=== PATIENT | male | born 2000 | race African-American/Black ===

== ENCOUNTER 2021-10-23 14:45 | Emergency (ER) | payer OTHER ==
[~2021-10-23] VITALS: Ht 182.9 cm; Wt 84.1 kg
[2021-10-23 18:11] LABS: RSV AMPLIFICATION NEGATIVE (NEGATIVE)
[2021-10-23 18:21] VITALS: BP 134/73
== END 2021-10-23 18:24 | disposition home or self-care (01) ==
LOC: M ED 14:45
DX: R05.9 Cough, unspecified (principal); R07.89 Other chest pain

== ENCOUNTER 2022-10-20 15:46 | Emergency (ER) | payer OTHER ==
[~2022-10-20] VITALS: Ht 182.9 cm; Wt 101.2 kg
[2022-10-20] MEDS ORDERED: TETRACAINE 0.5% OPHTH SOLN 4ML OS ONE (19:10)
[2022-10-20] MEDS ORDERED: FLUORESCEIN OPHTH 1MG STRIP OS ONE (19:10)
[2022-10-20] MEDS ORDERED: ACETAMINOPHEN 500 MG TAB PO ONE (19:10)
[2022-10-20] MEDS ORDERED: IBUP-1022 PO (22:04)
[2022-10-20 22:18] VITALS: BP 137/86; TEMP 98.4; O2SAT 98
== END 2022-10-20 22:20 | disposition home or self-care (01) ==
LOC: M ED 15:46
DX: S05.12XA Contusion of eyeball and orbital tissues, left eye, initial encounter (principal); H11.32 Conjunctival hemorrhage, left eye; Y04.0XXA Assault by unarmed brawl or fight, initial encounter; Y92.009 Unspecified place in unspecified non-institutional (private) residence as the place of occurrence of the external cause; Y93.89 Activity, other specified; Y99.8 Other external cause status

== ENCOUNTER 2023-12-29 11:43 | Emergency (ER) | payer OTHER ==
[~2023-12-29] VITALS: Ht 182.9 cm; Wt 107.5 kg
[~2023-12-29 11:43] MED LIST: IBUP-1022 PO
[2023-12-29] MEDS: methocarbamoL 750 MG TAB PO ONE (15:15)
[2023-12-29] MEDS: KETOROLAC 30 MG/ML 1ML VIAL IM ONE (15:16)
[2023-12-29] MEDS ORDERED: METH-1165 PO (15:51)
[2023-12-29] MEDS ORDERED: KETO10TAB PO (15:51)
[2023-12-29 16:01] VITALS: BP 130/82; TEMP 97.3; O2SAT 99
== END 2023-12-29 16:02 | disposition home or self-care (01) ==
LOC: M ED 11:43
DX: M54.50 Low back pain, unspecified (principal); M54.16 Radiculopathy, lumbar region; F12.10 Cannabis abuse, uncomplicated; Z79.1 Long term (current) use of non-steroidal anti-inflammatories (NSAID); Z79.2 Long term (current) use of antibiotics
CPT/HCPCS: 72110; 96372; 99283; J1885